=== PATIENT | female | born 1960 | race African-American/Black ===

== ENCOUNTER 2021-05-22 19:14 | Inpatient (IN) | payer MEDICAID ==
[~2021-05-22] VITALS: Ht 170.2 cm; Wt 67.6 kg
[2021-05-22 19:14] VITALS: BP 136/80
[2021-05-22] MEDS ORDERED: NALOXONE HCL 0.4 MG/ML 1ML VIAL IV PRN (21:15)
[2021-05-22] MEDS ORDERED: ONDANSETRON HCL 4MG/2ML INJ IV PRN (21:15)
[2021-05-22] MEDS ORDERED: BISACODYL 10MG SUPP PR PRN (21:15)
[2021-05-22] MEDS ORDERED: HYDRALAZINE HCL 25MG TABLET PO SCH (21:15)
[2021-05-22] MEDS ORDERED: DIPHENHYDRAMINE 50MG/ML VIAL IV PRN (21:15)
[2021-05-22] MEDS ORDERED: POLYETHYLENE GLYCOL 3350 (17GM) 1 DOSE PACK PO PRN (21:15)
[2021-05-22] MEDS ORDERED: MAGNESIUM HYDROXIDE 400MG/5ML 30ML UDC PO PRN (21:15)
[2021-05-22] MEDS ORDERED: OXYCODONE HCL/ACETAMINOPHEN 5/325MG TABLET PO PRN ×4 (21:15→22:15)
[2021-05-22] MEDS ORDERED: NALOXONE HCL 0.4MG/ML VIAL IV PRN (22:15)
[2021-05-22] MEDS ORDERED: OXYCODONE HCL 5MG TABLET PO PRN (22:15)
[2021-05-22] MEDS ORDERED: HYDRALAZINE HCL 25MG TABLET PO PRN (22:15)
[2021-05-22] MEDS: DEXAMETHASONE 4MG TABLET PO SCH (23:30)
[2021-05-22] MEDS: METHOCARBAMOL 750MG TABLET PO SCH (23:30)
[2021-05-22] MEDS: GABAPENTIN 300MG CAPSULE PO SCH (23:44)
[2021-05-22] MEDS: OXYCODONE HCL 5MG TABLET PO PRN (23:58)
[2021-05-23] MEDS ORDERED: *PATIENT'S OWN MEDICATION STORAGE XX SCH (00:45)
[2021-05-23] MEDS: GABAPENTIN 300MG CAPSULE PO SCH ×2 (05:21→13:31)
[2021-05-23] MEDS: METHOCARBAMOL 750MG TABLET PO SCH ×4 (05:21→23:15)
[2021-05-23] MEDS: DEXAMETHASONE 4MG TABLET PO SCH ×4 (05:21→23:15)
[2021-05-23 08:00] VITALS: BP 116/69
[2021-05-23 08:30] LABS: BASOPHILS % 0.5 % (0.0-2.0); HEMATOCRIT. 29.5 % (36.0-48.0); LYMPHOCYTES % 13.1 % (20.0-50.0); MEAN CORPUSCULAR HEMOGLOBIN 34.1 pg (28.0-32.0); MEAN PLATELET VOLUME 7.9 fl (7.4-10.4); MONOCYTES % 8.4 % (2.0-8.0); PLATELET 544 x1000/uL (130-400); RED BLOOD CELL COUNT 2.92 mill/uL (4.2-5.4); RED CELL DISTRIBUTION WIDTH 12.4 % (11.6-14.6)
[2021-05-23 08:54] LABS: CHLORIDE 102 mEq/L (98-107)
[2021-05-23 09:04] LABS: TOTAL IRON BINDING CAPACITY 182 ug/dL (250-450)
[2021-05-23 09:11] LABS: FOLIC ACID (FOLATE) SERUM 5.5 ng/mL (>5.38)
[2021-05-23] MEDS: DULOXETINE HCL 30MG DR CAPSULE PO SCH (09:15)
[2021-05-23] MEDS: AMLODIPINE 5MG TABLET PO SCH (09:15)
[2021-05-23] MEDS: SENNOSIDES/DOCUSATE SOD 8.6/50MG TABLET PO SCH ×2 (09:15→17:49)
[2021-05-23] MEDS: DOCUSATE SODIUM 100MG CAPSULE PO SCH ×2 (09:15→17:49)
[2021-05-23] MEDS: FAMOTIDINE 20MG TABLET PO SCH ×2 (09:15→20:35)
[2021-05-23] MEDS ORDERED: DOCUSATE SODIUM 100MG CAPSULE PO SCH (17:00)
[2021-05-23] MEDS: CYANOCOBALAMIN 1000MCG/ML VIAL IM SCH (17:50)
[2021-05-23 20:00] VITALS: BP 140/85
[2021-05-23] MEDS: POLYETHYLENE GLYCOL 3350 (17GM) 1 DOSE PACK PO SCH (20:36)
[2021-05-23] MEDS: OXYCODONE HCL 5MG TABLET PO PRN (22:12)
[2021-05-24] MEDS: DEXAMETHASONE 4MG TABLET PO SCH ×2 (05:32→05:38)
[2021-05-24] MEDS: METHOCARBAMOL 750MG TABLET PO SCH ×5 (05:32→23:17)
[2021-05-24 07:34] LABS: T4 FREE 0.97 ng/dL (0.76-1.46)
[2021-05-24 08:09] VITALS: BP 129/80
[2021-05-24] MEDS: DOCUSATE SODIUM 100MG CAPSULE PO SCH ×2 (08:59→18:18)
[2021-05-24] MEDS: FAMOTIDINE 20MG TABLET PO SCH ×2 (09:00→20:31)
[2021-05-24] MEDS: CYANOCOBALAMIN 1000MCG/ML VIAL IM SCH (09:00)
[2021-05-24] MEDS: SENNOSIDES/DOCUSATE SOD 8.6/50MG TABLET PO SCH ×2 (09:00→18:18)
[2021-05-24] MEDS: DULOXETINE HCL 30MG DR CAPSULE PO SCH (09:00)
[2021-05-24] MEDS: AMLODIPINE 5MG TABLET PO SCH (09:01)
[2021-05-24] MEDS: DEXAMETHASONE 1MG TABLET PO SCH ×2 (15:06→18:17)
[2021-05-24] MEDS: OXYCODONE HCL 5MG TABLET PO PRN (18:23)
[2021-05-24 20:00] VITALS: BP 132/70
[2021-05-24] MEDS: POLYETHYLENE GLYCOL 3350 (17GM) 1 DOSE PACK PO SCH (20:31)
[2021-05-25] MEDS: METHOCARBAMOL 750MG TABLET PO SCH ×3 (06:02→17:53)
[2021-05-25 07:53] LABS: BASOPHILS % 0.2 % (0.0-2.0); EOSINOPHILS % 0.1 % (0.0-5.0); HEMATOCRIT. 30.8 % (36.0-48.0); HEMOGLOBIN. 10.4 g/dL (12.0-16.0); LYMPHOCYTES % 25.1 % (20.0-50.0); MEAN CORPUSCULAR HEMOGLOBIN 33.4 pg (28.0-32.0); MEAN CORPUSCULAR VOLUME 98.9 fL (81.0-99.0); MEAN PLATELET VOLUME 7.4 fl (7.4-10.4); MONOCYTES % 10.5 % (2.0-8.0); NEUTROPHILS % 64.1 % (40.0-76.0); PLATELET 645 x1000/uL (130-400); RED BLOOD CELL COUNT 3.12 mill/uL (4.2-5.4); RED CELL DISTRIBUTION WIDTH 12.3 % (11.6-14.6)
[2021-05-25 08:00] VITALS: BP 114/81
[2021-05-25 08:01] LABS: CHLORIDE 104 mEq/L (98-107)
[2021-05-25] MEDS: CYANOCOBALAMIN 1000MCG/ML VIAL IM SCH ×2 (09:00→09:46)
[2021-05-25] MEDS: DEXAMETHASONE 1MG TABLET PO SCH ×3 (09:47→17:52)
[2021-05-25] MEDS: OXYCODONE HCL 5MG TABLET PO PRN ×2 (09:47→22:25)
[2021-05-25] MEDS: AMLODIPINE 5MG TABLET PO SCH (09:48)
[2021-05-25] MEDS: DOCUSATE SODIUM 100MG CAPSULE PO SCH ×2 (09:48→17:53)
[2021-05-25] MEDS: SENNOSIDES/DOCUSATE SOD 8.6/50MG TABLET PO SCH ×2 (09:48→17:53)
[2021-05-25] MEDS: DULOXETINE HCL 30MG DR CAPSULE PO SCH (09:48)
[2021-05-25] MEDS: FAMOTIDINE 20MG TABLET PO SCH ×2 (09:48→22:25)
[2021-05-25 20:00] VITALS: BP 130/74
[2021-05-25] MEDS: POLYETHYLENE GLYCOL 3350 (17GM) 1 DOSE PACK PO SCH (22:26)
[2021-05-26] MEDS: METHOCARBAMOL 750MG TABLET PO SCH ×4 (06:00→19:23)
[2021-05-26 08:00] VITALS: BP 138/79
[2021-05-26] MEDS: DEXAMETHASONE 1MG TABLET PO SCH (08:05)
[2021-05-26] MEDS: DOCUSATE SODIUM 100MG CAPSULE PO SCH ×2 (08:06→17:51)
[2021-05-26] MEDS: SENNOSIDES/DOCUSATE SOD 8.6/50MG TABLET PO SCH ×2 (08:06→17:51)
[2021-05-26] MEDS: FAMOTIDINE 20MG TABLET PO SCH ×2 (08:06→20:46)
[2021-05-26] MEDS: CYANOCOBALAMIN 1000MCG/ML VIAL IM SCH (08:07)
[2021-05-26] MEDS: AMLODIPINE 5MG TABLET PO SCH (08:07)
[2021-05-26] MEDS: DULOXETINE HCL 30MG DR CAPSULE PO SCH (08:07)
[2021-05-26] MEDS: OXYCODONE HCL 5MG TABLET PO PRN ×2 (09:52→20:48)
[2021-05-26] MEDS: DEXAMETHASONE 2MG TABLET PO SCH ×2 (12:12→17:51)
[2021-05-26 20:00] VITALS: BP 126/78
[2021-05-26] MEDS: POLYETHYLENE GLYCOL 3350 (17GM) 1 DOSE PACK PO SCH (20:46)
[2021-05-27] MEDS: METHOCARBAMOL 750MG TABLET PO SCH ×4 (05:19→17:01)
[2021-05-27 05:30] VITALS: BP 126/77
[2021-05-27 07:36] VITALS: BP 130/73
[2021-05-27] MEDS: DEXAMETHASONE 2MG TABLET PO SCH ×3 (08:22→17:01)
[2021-05-27] MEDS: SENNOSIDES/DOCUSATE SOD 8.6/50MG TABLET PO SCH ×2 (08:22→17:01)
[2021-05-27] MEDS: FAMOTIDINE 20MG TABLET PO SCH ×2 (08:22→21:55)
[2021-05-27] MEDS: DULOXETINE HCL 30MG DR CAPSULE PO SCH (08:23)
[2021-05-27] MEDS: DOCUSATE SODIUM 100MG CAPSULE PO SCH ×2 (08:23→17:01)
[2021-05-27] MEDS: AMLODIPINE 5MG TABLET PO SCH (08:24)
[2021-05-27] MEDS: CYANOCOBALAMIN 1000MCG/ML VIAL IM SCH (08:29)
[2021-05-27] MEDS: OXYCODONE HCL 5MG TABLET PO PRN ×2 (10:14→21:58)
[2021-05-27 20:00] VITALS: BP 135/75
[2021-05-27] MEDS: POLYETHYLENE GLYCOL 3350 (17GM) 1 DOSE PACK PO SCH (21:55)
[2021-05-28] MEDS: METHOCARBAMOL 750MG TABLET PO SCH ×4 (05:04→17:36)
[2021-05-28 06:54] LABS: BASOPHILS % 0.8 % (0.0-2.0); EOSINOPHILS % 0.7 % (0.0-5.0); HEMATOCRIT. 28.4 % (36.0-48.0); HEMOGLOBIN. 9.7 g/dL (12.0-16.0); LYMPHOCYTES % 37.3 % (20.0-50.0); MEAN CORPUSCULAR HEMOGLOBIN 33.9 pg (28.0-32.0); MEAN CORPUSCULAR VOLUME 99.3 fL (81.0-99.0); MEAN PLATELET VOLUME 6.9 fl (7.4-10.4); MONOCYTES % 9.1 % (2.0-8.0); NEUTROPHILS % 52.1 % (40.0-76.0); PLATELET 639 x1000/uL (130-400); RED BLOOD CELL COUNT 2.86 mill/uL (4.2-5.4); RED CELL DISTRIBUTION WIDTH 12.3 % (11.6-14.6)
[2021-05-28 06:57] LABS: CHLORIDE 104 mEq/L (98-107)
[2021-05-28 08:00] VITALS: BP 120/90
[2021-05-28] MEDS: DEXAMETHASONE 2MG TABLET PO SCH (09:28)
[2021-05-28] MEDS: AMLODIPINE 5MG TABLET PO SCH (09:28)
[2021-05-28] MEDS: DULOXETINE HCL 30MG DR CAPSULE PO SCH (09:28)
[2021-05-28] MEDS: SENNOSIDES/DOCUSATE SOD 8.6/50MG TABLET PO SCH ×2 (09:28→17:36)
[2021-05-28] MEDS: DOCUSATE SODIUM 100MG CAPSULE PO SCH ×2 (09:28→17:36)
[2021-05-28] MEDS: FAMOTIDINE 20MG TABLET PO SCH ×2 (09:28→20:33)
[2021-05-28] MEDS: CYANOCOBALAMIN 1000MCG/ML VIAL IM SCH (09:28)
[2021-05-28] MEDS ORDERED: NALOXONE HCL 0.4MG/ML VIAL IV PRN (11:00)
[2021-05-28] MEDS: DEXAMETHASONE 1MG TABLET PO SCH ×2 (12:28→17:36)
[2021-05-28] MEDS: OXYCODONE HCL/ACETAMINOPHEN 5/325MG TABLET PO PRN (12:30)
[2021-05-28 20:00] VITALS: BP 120/79
[2021-05-28] MEDS: POLYETHYLENE GLYCOL 3350 (17GM) 1 DOSE PACK PO SCH (20:34)
[2021-05-29] MEDS: METHOCARBAMOL 750MG TABLET PO SCH ×5 (00:42→23:22)
[2021-05-29 08:00] VITALS: BP 139/86
[2021-05-29] MEDS: DULOXETINE HCL 30MG DR CAPSULE PO SCH (08:30)
[2021-05-29] MEDS: AMLODIPINE 5MG TABLET PO SCH (08:30)
[2021-05-29] MEDS: SENNOSIDES/DOCUSATE SOD 8.6/50MG TABLET PO SCH ×2 (08:30→17:10)
[2021-05-29] MEDS: DEXAMETHASONE 1MG TABLET PO SCH ×3 (08:30→17:11)
[2021-05-29] MEDS: FAMOTIDINE 20MG TABLET PO SCH ×2 (08:30→20:19)
[2021-05-29] MEDS: DOCUSATE SODIUM 100MG CAPSULE PO SCH ×2 (08:30→17:10)
[2021-05-29] MEDS: CYANOCOBALAMIN 1000MCG/ML VIAL IM SCH (08:31)
[2021-05-29] MEDS: OXYCODONE HCL/ACETAMINOPHEN 5/325MG TABLET PO PRN ×2 (09:44→21:48)
[2021-05-29 17:38] LABS: BASOPHILS % 0.7 % (0.0-2.0); EOSINOPHILS % 0.3 % (0.0-5.0); HEMATOCRIT. 34.2 % (36.0-48.0); HEMOGLOBIN. 11.6 g/dL (12.0-16.0); LYMPHOCYTES % 25.2 % (20.0-50.0); MEAN CORPUSCULAR VOLUME 100.6 fL (81.0-99.0); MEAN PLATELET VOLUME 7.1 fl (7.4-10.4); MONOCYTES % 8.9 % (2.0-8.0); NEUTROPHILS % 64.9 % (40.0-76.0); PLATELET 692 x1000/uL (130-400); RED BLOOD CELL COUNT 3.41 mill/uL (4.2-5.4); RED CELL DISTRIBUTION WIDTH 12.7 % (11.6-14.6)
[2021-05-29 18:05] LABS: CHLORIDE 106 mEq/L (98-107)
[2021-05-29 20:00] VITALS: BP 103/71
[2021-05-29] MEDS: POLYETHYLENE GLYCOL 3350 (17GM) 1 DOSE PACK PO SCH (20:19)
[2021-05-30] MEDS: METHOCARBAMOL 750MG TABLET PO SCH ×4 (05:48→23:00)
[2021-05-30] MEDS: OXYCODONE HCL/ACETAMINOPHEN 5/325MG TABLET PO PRN ×2 (07:00→20:00)
[2021-05-30 08:04] VITALS: BP 120/65
[2021-05-30] MEDS: DEXAMETHASONE 1MG TABLET PO SCH (08:56)
[2021-05-30] MEDS: FAMOTIDINE 20MG TABLET PO SCH ×2 (08:56→20:00)
[2021-05-30] MEDS: DULOXETINE HCL 30MG DR CAPSULE PO SCH (08:56)
[2021-05-30] MEDS: AMLODIPINE 5MG TABLET PO SCH (08:56)
[2021-05-30] MEDS: DOCUSATE SODIUM 100MG CAPSULE PO SCH ×2 (08:56→17:02)
[2021-05-30] MEDS: SENNOSIDES/DOCUSATE SOD 8.6/50MG TABLET PO SCH ×2 (09:00→17:02)
[2021-05-30 20:00] VITALS: BP 118/71
[2021-05-30] MEDS: POLYETHYLENE GLYCOL 3350 (17GM) 1 DOSE PACK PO SCH (20:01)
[2021-05-31] MEDS: METHOCARBAMOL 750MG TABLET PO SCH ×3 (06:47→17:29)
[2021-05-31] MEDS: OXYCODONE HCL/ACETAMINOPHEN 5/325MG TABLET PO PRN ×2 (06:49→20:38)
[2021-05-31 07:21] LABS: T4 FREE 1.09 ng/dL (0.76-1.46)
[2021-05-31 07:50] VITALS: BP 121/71
[2021-05-31] MEDS: DOCUSATE SODIUM 100MG CAPSULE PO SCH ×2 (08:12→17:30)
[2021-05-31] MEDS: SENNOSIDES/DOCUSATE SOD 8.6/50MG TABLET PO SCH ×2 (08:12→17:30)
[2021-05-31] MEDS: FAMOTIDINE 20MG TABLET PO SCH ×2 (08:13→20:37)
[2021-05-31] MEDS: AMLODIPINE 5MG TABLET PO SCH (08:13)
[2021-05-31] MEDS: DULOXETINE HCL 30MG DR CAPSULE PO SCH (08:13)
[2021-05-31 14:07] LABS: 25-HYDROXY VITAMIN D3 27 ng/mL (.)
[2021-05-31 20:00] VITALS: BP 119/54
[2021-05-31] MEDS: POLYETHYLENE GLYCOL 3350 (17GM) 1 DOSE PACK PO SCH (20:37)
[2021-06-01] MEDS: METHOCARBAMOL 750MG TABLET PO SCH ×5 (00:30→23:10)
[2021-06-01 06:36] LABS: BASOPHILS % 1.3 % (0.0-2.0); EOSINOPHILS % 1.7 % (0.0-5.0); HEMATOCRIT. 32.5 % (36.0-48.0); HEMOGLOBIN. 10.6 g/dL (12.0-16.0); LYMPHOCYTES % 50.6 % (20.0-50.0); MEAN CORPUSCULAR HEMOGLOBIN 32.9 pg (28.0-32.0); MEAN CORPUSCULAR VOLUME 100.6 fL (81.0-99.0); MEAN PLATELET VOLUME 6.7 fl (7.4-10.4); MONOCYTES % 8.6 % (2.0-8.0); NEUTROPHILS % 37.8 % (40.0-76.0); PLATELET 562 x1000/uL (130-400); RED BLOOD CELL COUNT 3.23 mill/uL (4.2-5.4); RED CELL DISTRIBUTION WIDTH 12.9 % (11.6-14.6)
[2021-06-01 06:39] LABS: CHLORIDE 107 mEq/L (98-107)
[2021-06-01 08:00] VITALS: BP 107/64
[2021-06-01] MEDS: AMLODIPINE 5MG TABLET PO SCH ×2 (09:00→09:19)
[2021-06-01] MEDS: DOCUSATE SODIUM 100MG CAPSULE PO SCH ×2 (09:00→16:56)
[2021-06-01] MEDS: SENNOSIDES/DOCUSATE SOD 8.6/50MG TABLET PO SCH ×2 (09:00→16:56)
[2021-06-01] MEDS: DULOXETINE HCL 30MG DR CAPSULE PO SCH (09:19)
[2021-06-01] MEDS: FAMOTIDINE 20MG TABLET PO SCH ×2 (09:19→21:15)
[2021-06-01] MEDS: OXYCODONE HCL/ACETAMINOPHEN 5/325MG TABLET PO PRN ×2 (11:37→21:27)
[2021-06-01 20:00] VITALS: BP 119/68
[2021-06-01] MEDS: POLYETHYLENE GLYCOL 3350 (17GM) 1 DOSE PACK PO SCH (21:15)
[2021-06-02] MEDS: METHOCARBAMOL 750MG TABLET PO SCH ×3 (05:49→17:06)
[2021-06-02] MEDS: FAMOTIDINE 20MG TABLET PO SCH ×2 (08:22→21:40)
[2021-06-02] MEDS: DULOXETINE HCL 30MG DR CAPSULE PO SCH (08:22)
[2021-06-02] MEDS: SENNOSIDES/DOCUSATE SOD 8.6/50MG TABLET PO SCH ×2 (08:22→17:06)
[2021-06-02] MEDS: AMLODIPINE 5MG TABLET PO SCH (08:23)
[2021-06-02] MEDS: OXYCODONE HCL/ACETAMINOPHEN 5/325MG TABLET PO PRN (08:25)
[2021-06-02] MEDS: DOCUSATE SODIUM 100MG CAPSULE PO SCH ×2 (08:25→17:05)
[2021-06-02 09:07] VITALS: BP 124/70
[2021-06-02] MEDS ORDERED: ERGOCALCIFEROL 50000UNITS CAPSULE PO SCH (17:00)
[2021-06-02 20:00] VITALS: BP 127/82
[2021-06-02] MEDS ORDERED: OXYCODONE HCL/ACETAMINOPHEN 5/325MG TABLET PO PRN ×2 (21:30)
[2021-06-02] MEDS: POLYETHYLENE GLYCOL 3350 (17GM) 1 DOSE PACK PO SCH (21:40)
[2021-06-02] MEDS ORDERED: NALOXONE HCL 0.4MG/ML VIAL IV PRN (21:45)
[2021-06-03] MEDS: METHOCARBAMOL 750MG TABLET PO SCH ×3 (00:48→11:14)
[2021-06-03 08:15] VITALS: BP 142/40
[2021-06-03] MEDS: FAMOTIDINE 20MG TABLET PO SCH (08:19)
[2021-06-03] MEDS: AMLODIPINE 5MG TABLET PO SCH (08:19)
[2021-06-03] MEDS: DOCUSATE SODIUM 100MG CAPSULE PO SCH (08:19)
[2021-06-03] MEDS: DULOXETINE HCL 30MG DR CAPSULE PO SCH (08:19)
[2021-06-03] MEDS: SENNOSIDES/DOCUSATE SOD 8.6/50MG TABLET PO SCH (08:19)
[2021-06-03 10:19] VITALS: BP 130/80
[2021-06-05] MEDS ORDERED: CYANOCOBALAMIN 1000MCG/ML VIAL IM SCH (09:00)
== END 2021-06-03 12:25 | disposition home or self-care (01) | DRG 347 ==
PROVIDERS: ADMIT Physical Medicine & Rehabilitation Spinal Cord Injury Medicine; ATTEND Internal Medicine
DX: M48.02 Spinal stenosis, cervical region (principal); G82.50 Quadriplegia, unspecified; E43 Unspecified severe protein-calorie malnutrition; G93.89 Other specified disorders of brain; D64.9 Anemia, unspecified; D72.829 Elevated white blood cell count, unspecified; E04.2 Nontoxic multinodular goiter; E53.8 Deficiency of other specified B group vitamins; E87.1 Hypo-osmolality and hyponatremia; G89.29 Other chronic pain; I10 Essential (primary) hypertension; M48.061 Spinal stenosis, lumbar region without neurogenic claudication; E55.9 Vitamin D deficiency, unspecified; R53.81 Other malaise; R00.0 Tachycardia, unspecified; R07.9 Chest pain, unspecified; R73.9 Hyperglycemia, unspecified; Z68.23 Body mass index [BMI] 23.0-23.9, adult; Z82.49 Family history of ischemic heart disease and other diseases of the circulatory system; Z83.3 Family history of diabetes mellitus; Z98.891 History of uterine scar from previous surgery; R26.9 Unspecified abnormalities of gait and mobility; M79.609 Pain in unspecified limb
CPT/HCPCS: 36415; 80048; 80053; 82306; 82607; 82728; 82746; 83036; 83540; 83550; 84134; 84439; 84443; 84481; 85025; 86376; 92610; 93970; 97110; 97112; 97116; 97150; 97162; 97166; 97530; 97535; A6261; J3420; J8540